=== PATIENT | male | born 1995 | race Caucasian/White ===

== ENCOUNTER 2018-01-11 09:51 | Emergency (ER) | payer OTHER ==
[~2018-01-11] VITALS: Ht 188 cm; Wt 91.2 kg
[~2018-01-11 09:51] MED LIST: CENTTAB9 PO; EXTR500C PO; GUAN1ER PO; IBUP600T26 PO; MAGN250T14 PO; SERO100T PO
[2018-01-11 09:55] VITALS: BP 133/78; PULSE 77; RESP 20; TEMP 98.2; O2SAT 100
[2018-01-11] MEDS ORDERED: AMPICILLIN-SULBACTAM INJ 3 GM in SODIUM CHLORIDE 0.9% INJ 100 ML IV ONE (10:15)
[2018-01-11] MEDS ORDERED: KETOROLAC TROMETHAMINE 30 MG/ML (IVP) VIAL IV PUSH ONE (10:15)
[2018-01-11] MEDS ORDERED: RABIES VACCINE CHICK EMB INJ 2.5 UNITS/ML SYR IM ONE (10:15)
[2018-01-11] MEDS ORDERED: RABIES IMMUNE GLOBULIN INJ 1,500 UNITS/10 ML VIAL IM ONE (10:15)
[2018-01-11 11:22] LABS: AUTOMATED NEUTROPHIL # 5.4 TH/MM3 (1.8-7.7); BASOPHIL # 0.1 TH/MM3 (0-0.2); BASOPHIL % 0.9 % (0.0-2.0); EOSINOPHIL # 0.4 TH/MM3 (0-0.4); EOSINOPHIL % 4.3 % (0.0-4.0); HEMATOCRIT 44.1 % (39.0-51.0); HEMOGLOBIN 14.9 GM/DL (13.0-17.0); LYMPH % 19.4 % (9.0-44.0); LYMPHOCYTE # 1.6 TH/MM3 (1.0-4.8); MEAN CORPUSCULAR HEMOGLOBIN 30.5 PG (27.0-34.0); MEAN CORPUSCULAR HGB CONC 33.9 % (32.0-36.0); MEAN PLATELET VOLUME 7.8 FL (7.0-11.0); MONO % 11.4 % (0.0-8.0); PLATELET COUNT 209 TH/MM3 (150-450); RED CELL DISTRIBUTION WIDTH 13.4 % (11.6-17.2); WHITE BLOOD COUNT 8.5 TH/MM3 (4.0-11.0)
[2018-01-11 11:48] LABS: ALBUMIN 3.8 GM/DL (3.4-5.0); ALT (GPT) 19 U/L (12-78); AST (GOT) 17 U/L (15-37); BICARBONATE 28.5 MEQ/L (21.0-32.0); BLOOD UREA NITROGEN 11 MG/DL (7-18); C-REACTIVE PROTEIN 0.41 MG/DL (0.00-0.30); CALCIUM 8.7 MG/DL (8.5-10.1); CHLORIDE 109 MEQ/L (98-107); CREATININE 1.05 MG/DL (0.60-1.30); GLOMERULAR FILTRATION RATE 89 ML/MIN (>89); GLUCOSE,RANDOM 85 MG/DL (74-106); SODIUM (NA) 141 MEQ/L (136-145)
[2018-01-11] MEDS ORDERED: IOHEXOL 350 MG/ML 10 ML VIAL (for RAD DIAG) IVCONTRAST ONE (11:49)
[2018-01-11 11:50] LABS: ALKALINE PHOSPHATASE 83 U/L (45-117); TOTAL BILIRUBIN ADULT 0.5 MG/DL (0.2-1.0); TOTAL PROTEIN 7.6 GM/DL (6.4-8.2)
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
[2018-01-11] MEDS ORDERED: METR-1 PO (12:29)
[2018-01-11] MEDS ORDERED: AUGM875T3 PO (12:29)
--- NOTE | 2018-01-11 12:29 | PD ---
HPI Chief Complaint: Bite or Sting Time Seen by Provider: 10:03 Travel History International Travel<30 days: No Contact w/Intl Traveler<30days: No Traveled to known affect area: No History of Present Illness HPI Patient is a 22-year-old male who comes in complaining of pain and swelling to his left hand after sustaining a cat bite a week and a half ago. He says it seemed to get better and he was cleaning it often. However, he says in the past couple days it seems to have gotten more swollen and painful. He has tried [id number] pain medicine without relief. He denies fever chills. Denies any other injury. He does not know the rabies status of the cat. It was a kitten that he was adopting from a friend. Severity is mild to moderate. PFSH Past Medical History ADHD: Yes Weight (Kg): Cancer: No Cardiovascular Problems: No Diabetes: No Headaches: No Psychiatric: Yes Migraines: No Seizures: No Thyroid Disease: No Ulcer: No Past Surgical History Other Surgery: Yes (RIGHT PINKY) Social History Alcohol Use: Yes (OCCASIONAL) Tobacco Use: No Substance Use: Yes (MARIJUANA---ALMOST DAILY) Allergies-Medications (Allergen,Severity, Reaction): Coded Allergies: No Known Allergies (Unverified Allergy, Unknown, 01/11/18) Reported Meds & Prescriptions Reported Meds & Active Scripts Active No Active Prescriptions or Reported Medications Review of Systems Except as stated in HPI: all other systems reviewed are Neg General / Constitutional: No: Fever, Chills HENT: No: Headaches, Lightheadedness Cardiovascular: No: Chest Pain or Discomfort Respiratory: No: Shortness of Breath Gastrointestinal: No: Nausea, Vomiting Musculoskeletal: Positive: Pain Neurologic: No: Weakness, Dizziness Physical Exam Narrative GENERAL: Awake and alert, in no acute distress. SKIN: Small puncture wound to the palmar aspect of the hand as well as the volar surface of the left first digit. No erythema or warmth. HEAD: Atraumatic. Normocephalic. EYES: Pupils equal and round. No scleral icterus. No injection or drainage. ENT: Mucous membranes pink and moist. NECK: Trachea midline. No JVD. CARDIOVASCULAR: Regular rate and rhythm. No murmur appreciated. RESPIRATORY: No accessory muscle use. Clear to auscultation. Breath sounds equal bilaterally. MUSCULOSKELETAL: No obvious deformities. No clubbing. No cyanosis. Swelling of left first digit. Pain with flexion, no pain on extension. NEUROLOGICAL: Awake and alert. No obvious cranial nerve deficits. Motor grossly within normal limits. Normal speech. PSYCHIATRIC: Appropriate mood and affect; insight and judgment normal. Data Data Last Documented VS Vital Signs Date Time Temp Pulse Resp B/P (MAP) Pulse Ox O2 Delivery O2 Flow Rate FiO2 01/11/18 09:55 98.2 77 20 133/78 (96) 100 Orders Orders Iv Access Insert/Monitor (01/11/18 10:09) Complete Blood Count With Diff (01/11/18 10:09) Comprehensive Metabolic Panel (01/11/18 10:09) [place] Sedimentation Rate (01/11/18 10:09) C-Reactive Protein (Crp) (01/11/18 10:09) Ct Hand W Iv Contrast (01/11/18 ) Ampicillin-Sulbactam Inj (Unasyn Inj) (01/11/18 10:15) Ketorolac Inj (Toradol Inj) (01/11/18 10:15) Rabies Vaccine Chick Emb Inj (Rabavert I (01/11/18 10:15) Rabies Immune Globulin Inj (Hyperrab S/D (01/11/18 10:15) Iohexol 350 Inj (Omnipaque 350 Inj) (01/11/18 11:49) Labs Laboratory Tests Test 01/11/18 10:49 White Blood Count 8.5 TH/MM3 Red Blood Count 4.90 MIL/MM3 Hemoglobin 14.9 GM/DL Hematocrit 44.1 % Mean Corpuscular Volume 90.0 FL Mean Corpuscular Hemoglobin 30.5 PG Mean Corpuscular Hemoglobin Concent 33.9 % Red Cell Distribution Width 13.4 % Platelet Count 209 TH/MM3 Mean Platelet Volume 7.8 FL Neutrophils (%) (Auto) 64.0 % Lymphocytes (%) (Auto) 19.4 % Monocytes (%) (Auto) 11.4 % Eosinophils (%) (Auto) 4.3 % Basophils (%) (Auto) 0.9 % Neutrophils # (Auto) 5.4 TH/MM3 Lymphocytes # (Auto) 1.6 TH/MM3 Monocytes # (Auto) 1.0 TH/MM3 Eosinophils # (Auto) 0.4 TH/MM3 Basophils # (Auto) 0.1 TH/MM3 CBC Comment DIFF FINAL Differential Comment Erythrocyte Sedimentation Rate 4 mm/hr Blood Urea Nitrogen 11 MG/DL Creatinine 1.05 MG/DL Random Glucose 85 MG/DL Total Protein 7.6 GM/DL Albumin 3.8 GM/DL Calcium Level 8.7 MG/DL Alkaline Phosphatase 83 U/L Aspartate Amino Transf (AST/SGOT) 17 U/L Alanine Aminotransferase (ALT/SGPT) 19 U/L Total Bilirubin 0.5 MG/DL Sodium Level 141 MEQ/L Potassium Level 4.3 MEQ/L Chloride Level 109 MEQ/L Carbon Dioxide Level 28.5 MEQ/L Anion Gap 4 MEQ/L Estimat Glomerular Filtration Rate 89 ML/MIN C-Reactive Protein 0.41 MG/DL MDM Medical Decision Making Medical Screen Exam Complete: Yes Emergency Medical Condition: Yes Medical Record Reviewed: Yes Differential Diagnosis Cellulitis versus abscess versus animal bite Narrative Course Patient is a 22-year-old male comes in complaining of pain and swelling after sustaining a cat bite a week and half ago. Exam shows swelling of the left first digit. IV established, labs sent. Labs show ESR is within normal limits. CRP is just slightly elevated at 0.41. CT of the hand obtained shows no evidence of abscess. There is a questionable foreign body. However on exam, this does not line up with his wound and he is not tender to this area. Last 24 hours Impressions Upper Extremity CT 01/11/18 0000 Signed Impressions: Service Date/Time: Thursday, January 11, 2018 11:27 - CONCLUSION: 1. Single tiny 1-2 mm high density structure along the volar aspect of the second metacarpal head which is nonspecific but could represent a small radiopaque foreign body. Correlation to bite wound is recommended. 2. No evidence of abscess or underlying bony abnormality. Andrzej Fisher MD Patient given a dose of Unasyn here. He will be discharged with prescriptions for Augmentin and Flagyl. Given good Rx coupons to help with the cost of the antibiotics. Given strict return precautions and advised to return if it anytime he gets worse or he does not improve over the next few days. Patient was offered rabies prophylaxis, but declines at this time. Diagnosis Primary Impression: Cellulitis of hand Patient Instructions: Cellulitis (ED), General Instructions Additional Instructions: Take all of the antibiotics. Do not drink alcohol while taking these antibiotics that she will become violently ill. Drink plenty of fluids. Return anytime for any worsening symptoms, or if you do not improve over the next few days. Scripts Metronidazole (Flagyl) 500 Mg Tab 500 MG PO BID for Infection for 7 Days, #14 TAB 0 Refills Prov: Karen Goins MD 01/11/18 Amoxicillin-Clavulanate (Augmentin) 875-125 Mg Tab 1 TAB PO BID for Infection for 10 Days, #20 TAB 0 Refills Prov: Karen Goins MD 01/11/18 Disposition: 01 DISCHARGE HOME Condition: Stable Karen Goins MD Jan 11, 2018 12:29
== END 2018-01-11 13:05 | disposition home or self-care (01) ==
LOC: NEPD 09:51
DX: M79.89 Other specified soft tissue disorders (principal); L03.114 Cellulitis of left upper limb; F90.9 Attention-deficit hyperactivity disorder, unspecified type; S60.572A Other superficial bite of hand of left hand, initial encounter; W55.01XA Bitten by cat, initial encounter
CPT/HCPCS: 73201; 80053; 85025; 85652; 86140; 96374; 96375; 99284; J0295; J1885; Q9967

== ENCOUNTER 2018-02-13 20:01 | Emergency (ER) | payer SELFPAY ==
[~2018-02-13] VITALS: Ht 190.5 cm; Wt 90.5 kg
[~2018-02-13 20:01] MED LIST changes: +AUGM875T3 PO; -CENTTAB9 PO; -EXTR500C PO; -GUAN1ER PO; -IBUP600T26 PO; -MAGN250T14 PO; +METR-1 PO; -SERO100T PO
[2018-02-13 20:31] VITALS: BP 114/53; PULSE 71; RESP 18; TEMP 98.3; O2SAT 97
--- NOTE | 2018-02-13 22:40 | RADRPT ---
EXAM DATE: 02/13/2018 10:31 PM EDT AGE/SEX: 22 years / Male INDICATIONS: Pain in left hand, first digit from a cat bite three months ago. CLINICAL DATA: This is the patient's initial encounter. Patient reports that signs and symptoms have been present for 3 months and indicates a pain score of 7/10. MEDICAL/SURGICAL HISTORY: None. None. COMPARISON: No prior [place] exams available for comparison. FINDINGS: Bony structures are intact and in normal alignment. Osseous density is normal. Soft tissues are unre markable. No radiopaque foreign bodies seen. CONCLUSION: No acute findings. Electronically signed by: Juan David Urena MD 02/13/2018 10:39 PM EDT
[2018-02-13] MEDS ORDERED: AUGM875T3 PO (22:52)
--- NOTE | 2018-02-13 22:53 | PD ---
HPI Chief Complaint: Bite or Sting Time Seen by Provider: 21:58 Travel History International Travel<30 days: No Contact w/Intl Traveler<30days: No Traveled to known affect area: No History of Present Illness HPI 22-year-old male complains of erythema of swelling and pain about the volar aspect of the second digit on the left hand. He reports he was bit by a cat about 7 weeks ago. He was seen here and took a 10 day course of Augmentin. Symptoms improved and then a few days prior to today's arrival the swelling pain returned. A plain film at that time showed possible retained foreign body. He denies any fever or interval trauma. The pain is mild and worse with palpation. Patient refused rabies at that time. [facility] Past Medical History ADHD: Yes Weight (Kg): uk Cancer: No Cardiovascular Problems: No Diabetes: No Headaches: No Psychiatric: Yes Migraines: No Seizures: No Thyroid Disease: No Ulcer: No Tetanus Vaccination: Unknown Past Surgical History Surgical History: No Previous Surgery Other Surgery: Yes (RIGHT PINKY) Social History Alcohol Use: Yes (OCCASIONAL) Tobacco Use: Yes (2 cig daily) Substance Use: Yes (MARIJUANA---ALMOST DAILY) Allergies-Medications (Allergen,Severity, Reaction): Coded Allergies: No Known Allergies (Unverified Allergy, Unknown, 01/11/18) Reported Meds & Prescriptions Reported Meds & Active Scripts Active Flagyl (Metronidazole) 500 Mg Tab 500 Mg PO BID 7 Days Augmentin (Amoxicillin-Clavulanate) 875-125 Mg Tab 1 Tab PO BID 10 Days Review of Systems General / Constitutional: No: Fever Cardiovascular: No: Chest Pain or Discomfort Respiratory: No: Cough, Shortness of Breath Gastrointestinal: No: Nausea Musculoskeletal: Positive: Pain, No: Myalgias, Limited ROM, Weakness, Cramping , Edema Physical Exam Narrative GENERAL: 22-year-old male well-nourished well-developed Vital Signs Date Time Temp Pulse Resp B/P (MAP) Pulse Ox O2 Delivery O2 Flow Rate FiO2 02/13/18 20:31 98.3 71 18 114/53 (73) 97 SKIN: Warm and dry. HEAD: Normocephalic. EYES: No scleral icterus. No injection or drainage. NECK: Supple, trachea midline. No JVD or lymphadenopathy. CARDIOVASCULAR: Regular rate and rhythm without murmurs, gallops, or rubs. RESPIRATORY: Breath sounds equal bilaterally. No accessory muscle use. GASTROINTESTINAL: Abdomen soft, non-tender, nondistended. MUSCULOSKELETAL: No cyanosis, or edema. Erythema with minimal swelling and tenderness palpation along the volar aspect of the first metacarpophalangeal articulation on the left hand. There is no fluctuance. There is no pain with flexion extension of the distal interphalangeal articulation. There is is no passive flexion. BACK: Nontender without obvious deformity. No CVA tenderness. Data Data Last Documented VS Vital Signs Date Time Temp Pulse Resp B/P (MAP) Pulse Ox O2 Delivery O2 Flow Rate FiO2 02/13/18 20:31 98.3 71 18 114/53 (73) 97 Vital signs reviewed Orders Orders Hand, Complete ([id number]) (02/13/18 ) [facility] Medical Decision Making Medical Screen Exam Complete: Yes Emergency Medical Condition: Yes Medical Record Reviewed: Yes Differential Diagnosis Cellulitis, flexor tenosynovitis, abscess, retained foreign body Narrative Course Last Impressions Hand X-Ray 02/13/18 0000 Signed Impressions: CONCLUSION: No acute findings. We see no acute injury. There is no retained foreign body. Will provide the patient with a two-week course of Augmentin. The patient returns yet again we might need to call hand surgery or admit for IV antibiotics. The wound is very mild at this point. Admission or referral to hand surgery at this point is considered unnecessary. Diagnosis Primary Impression: Cellulitis of hand Referrals: Primary Care Physician 1 day Med/Other Pt SpecificInfo: Prescription(s) given Scripts Amoxicillin-Clavulanate (Augmentin) 875-125 Mg Tab 1 TAB PO BID for Infection for 14 Days, #28 TAB 0 Refills Prov: Popeye Cedillo MD 02/13/18 Disposition: DISCHARGE HOME Condition: Stable Popeye Cedillo MD February 13, 2018 22:53
[2018-02-13] MEDS ORDERED: AMOXICILLIN/CLAVULANATE K 875 MG TAB PO ONE (23:00)
== END 2018-02-13 23:47 | disposition home or self-care (01) ==
LOC: NEPD 20:01
DX: L03.119 Cellulitis of unspecified part of limb (principal); W55.01XA Bitten by cat, initial encounter; F12.90 Cannabis use, unspecified, uncomplicated; Z72.0 Tobacco use
CPT/HCPCS: 73130; 99283